=== PATIENT | female | born 1990 | race Caucasian/White ===

== ENCOUNTER 2020-02-01 00:13 | Emergency (ER) | payer BC ==
[2020-02-01 00:24] VITALS: O2SAT 99
[2020-02-01] MEDS ORDERED: PERCOCET TABLET 5/325MG PO ONE (00:36)
[2020-02-01] MEDS ORDERED: MOTRIN 600 MG PO ONE (00:36)
[2020-02-01] MEDS ORDERED: PERCOCET TABLET 5/325MG ONE (00:39)
[2020-02-01] MEDS ORDERED: MOTRIN 600 MG ONE (00:39)
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
[2020-02-01 01:33] VITALS: BP 137/84; PULSE 74
--- NOTE | 2020-02-01 08:35 | XRAY ---
Indication: Pain following fall. Comparison: None 3 view right wrist demonstrates mild soft tissue swelling. No other bony, articular, or soft tissue abnormalities. Comment: Preliminary interpretation was made by [facility]. No critical discrepancy.
--- NOTE | 2020-02-01 08:35 | XRAY ---
Indication: Pain following fall. Comparison: None 2 views right forearm demonstrates mild distal soft tissue swelling. No other bony, articular, or soft tissue abnormalities.
== END 2020-02-01 01:33 | disposition home or self-care (01) ==
LOC: ED 00:13
DX: S63.501A Unspecified sprain of right wrist, initial encounter (principal); M79.631 Pain in right forearm; M25.531 Pain in right wrist; V86.55XA Driver of 3- or 4- wheeled all-terrain vehicle (ATV) injured in nontraffic accident, initial encounter; Z72.0 Tobacco use; R58 Hemorrhage, not elsewhere classified
CPT/HCPCS: 29105; 73090; 73110; 99284; A9270-GY